=== PATIENT | female | born 1990 | race Caucasian/White ===

== ENCOUNTER 2019-04-05 21:14 | Emergency (ER) | payer BC ==
[2019-04-05] MEDS ORDERED: Ketorolac 60 MG/2 ML SDV IM ONE (23:22)
[2019-04-05] MEDS ORDERED: Baclofen 10 MG Tab PO ONE (23:22)
[2019-04-05] MEDS ORDERED: Acetaminophen/oxyCODONE 325-5 MG Tab PO ONE (23:23)
--- NOTE | 2019-04-05 23:29 | EDM.PDOC ---
ED HPI GENERAL MEDICAL PROBLEM - General Chief Complaint: Lower Extremity Injury/Pain Stated Complaint: PULLED TENDIN Time Seen by Provider: 04/05/19 23:23 Source of Information: Reports: Patient History Limitations: Reports: No Limitations - History of Present Illness INITIAL COMMENTS - FREE TEXT/NARRATIVE: PT ARRIVED WITH PAIN IN THE RT GROIN . [place] AND WENT TO STAND UP AND DEVELOPED VERY ACUTE PAIN. sHE HAS BEEN VERY UNCOMFORTABLE. sHE WAS SEEN AT THE CLINIC TODAY BUT SHE WAS ADVISED TO USE MOTRIN AND THIS IS NOT GIVING HER RELIEF. Onset: Other ( STARTED YESTERDAY. 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: Neurological History: Reports: Migraines - Infectious Disease History Infectious Disease History: Reports: Chicken Pox - Past Surgical History HEENT Surgical History: Reports: Oral Surgery Social & Family History - Tobacco Use Smoking Status *Q: Never Smoker - Caffeine Use Caffeine Use: Reports: Coffee, Soda - Recreational Drug Use Recreational Drug Use: No Review of Systems - Review of Systems Review Of Systems: See Below Constitutional: Reports: No Symptoms Eyes: Reports: No Symptoms Ears: Reports: No Symptoms Nose: Reports: No Symptoms Mouth/Throat: Reports: No Symptoms Respiratory: Reports: No Symptoms Cardiovascular: Reports: No Symptoms GI/Abdominal: Reports: No Symptoms Musculoskeletal: Reports: Other (PAIN IN THE RT GROIN. ) ED EXAM, GENERAL - Physical Exam Exam: See Below Free Text/Narrative:: PT ARRIVED WITH PAIN IN THE RT GROIN. tHIS FEELS VERY TIGHT. Exam Limited By: No Limitations General Appearance: Alert, Moderate Distress Ears: Normal TMs Nose: Normal Inspection Throat/Mouth: Normal Inspection Head: Atraumatic Neck: Normal Inspection Extremities: Other (PAIN IN RT GROIN tHIS WHOLE AREA IS FEELING VERY TIGHT. sHE HAS A NEG STRAIGHT RAISING SIGN. R) Neurological: Alert, Oriented, Normal Cognition Course - Vital Signs Last Recorded V/S: Last Vital Signs Temp 37.0 C 04/05/19 23:00 Pulse 73 04/05/19 23:00 Resp 16 04/05/19 23:00 BP 124/78 04/05/19 23:00 Pulse Ox 97 04/05/19 23:00 - Orders/Labs/Meds Meds: Medications Discontinued Medications Generic Name Dose Route Start Last Admin Trade Name Marlin PRN Reason Stop Dose Admin Baclofen 10 mg 04/05/19 23:22 04/05/19 23:39 Lioresal PO 04/05/19 23:23 10 mg ONETIME ONE Administration Ketorolac Tromethamine 60 mg 04/05/19 23:22 04/05/19 23:39 Toradol IM 04/05/19 23:23 60 mg ONETIME ONE Administration Oxycodone/Acetaminophen 1 tab 04/05/19 23:23 04/05/19 23:39 Percocet 325-5 Mg PO 04/05/19 23:24 1 tab ONETIME ONE Administration - Re-Assessments/Exams Free Text/Narrative Re-Assessment/Exam: 04/05/19 23:35 PT WAS GIVEN TORODOL, PERCOCET , BACLOFEN. She is much more comfortable. 04/05/19 23:59 Departure - Departure Time of Disposition: 00:00 Disposition: Home, Self-Care 01 Condition: Fair Clinical Impression: Groin injury - Discharge Information Referrals: PCP,None [Primary Care Provider] - Forms: ED Department Discharge Care Plan Goals: moist warm heat to rt groin, soak in a tub, baclofen 10 mg bid, motrin 600mg tid , norco 5/325 q6h prn for pain.
== END 2019-04-06 00:28 | disposition home or self-care (01) ==
LOC: JP.ED 21:14
DX: S39.91XA Unspecified injury of abdomen, initial encounter (principal); Z98.890 Other specified postprocedural states; X58.XXXA Exposure to other specified factors, initial encounter
CPT/HCPCS: 96372; 99283; A9270; J1885